=== PATIENT | female | born 1995 | race Caucasian/White ===

== ENCOUNTER 2019-03-30 17:45 | Emergency (ER) | payer MEDICAID | END 2019-03-30 19:18 | disposition left against medical advice (07) | LOC: JP.ED 17:45 | DX: Z53.21 Procedure and treatment not carried out due to patient leaving prior to being seen by health care provider (principal) ==

== ENCOUNTER 2019-03-30 20:49 | Emergency (ER) | payer MEDICAID ==
[2019-03-30 21:43] VITALS: BP 121/84; PULSE 87
[2019-03-30] MEDS ORDERED: Diphtheria,Pertussis(Acell),Tetanus Vaccine 0.5 ML SDV IM ONE (21:48)
--- NOTE | 2019-03-30 21:54 | EDM.PDOC ---
ED HPI GENERAL MEDICAL PROBLEM - General Chief Complaint: Skin Complaint Stated Complaint: STEPPED ON GLORIA NAIL RT FOOT Time Seen by Provider: 03/30/19 21:35 Source of Information: Reports: Patient, Old Records History Limitations: Reports: No Limitations - History of Present Illness INITIAL COMMENTS - FREE TEXT/NARRATIVE: 23 yo female presents with a hx of stepping on a gloria nail 2 d ago. Has some pain with putting pressure on this area. Also notes some R jaw pain. Does grind her teeth when she sleeps. No fever. No redness of injured foot area. Last tetanus was 10 yrs ago. Onset: Sudden Onset Date: 03/28/19 Duration: Day(s): (2), Improving Location: Reports: Lower Extremity, Left Quality: Reports: Dull Severity: Mild Improves with: Reports: Rest Worsens with: Reports: Movement (weight bearing) Context: Reports: Trauma Associated Symptoms: Reports: Other (R jaw pain) - Related Data Allergies Allergy/AdvReac Type Severity Reaction Status Date / Time No Known Allergies Allergy Verified 07/02/15 09:25 Home Meds: Home Meds NK [No Known Home Meds] 07/02/15 [History] ED ROS GENERAL - Review of Systems Review Of Systems: See Below Constitutional: Reports: No Symptoms HEENT: Reports: Other (mild R jaw pain.) Respiratory: Reports: No Symptoms Cardiovascular: Reports: No Symptoms GI/Abdominal: Reports: No Symptoms : Reports: No Symptoms Musculoskeletal: Reports: No Symptoms Skin: Reports: Wound (2 punctures of L forefoot) Neurological: Reports: No Symptoms ED EXAM, SKIN/RASH Exam: See Below Exam Limited By: No Limitations General Appearance: Alert, WD/WN, No Apparent Distress Eye Exam: Bilateral Eye: Normal Inspection Ears: Normal External Exam, Hearing Grossly Normal Nose: Normal Inspection, No Blood Throat/Mouth: Normal Inspection, Normal Lips, Normal Voice, No Airway Compromise Head: Atraumatic, Normocephalic Neck: Normal Inspection Extremities: Normal Inspection Neurological: Alert, Oriented, CN II-XII Intact, Normal Cognition, No Motor/ Sensory Deficits Skin: Wound/Incision (2 puncture wounds L forefoot. ) Location, Skin: Lower Extremity, Left Characteristics: Other (pinpoint). No: Erythematous Associated features: Tenderness (minimal). No: Warmth, Lymphangitis Course - Vital Signs Last Recorded V/S: Last Vital Signs Temp 35.8 C 03/30/19 21:42 Pulse 87 03/30/19 21:42 Resp 16 03/30/19 21:42 BP 121/84 03/30/19 21:42 Pulse Ox 98 03/30/19 21:42 - Orders/Labs/Meds Orders: Active Orders 24 hr Category Date Time Status Vaccines to be Administered [RC] PER UNIT ROUTINE Care 03/30/19 21:48 Ordered Diphth,Pertuss(Acell),Tet Vac [Adacel] Med 03/30/19 21:48 Once 0.5 ml IM .ONCE ONE Medication Orders Diphtheria/Tetanus/Acell Pertussis (Adacel) 0.5 ml IM .ONCE ONE Stop: 03/30/19 21:49 Meds: Medications Generic Name Dose Route Start Last Admin Trade Name Freq PRN Reason Stop Dose Admin Diphtheria/Tetanus/Acell Pertussis 0.5 ml 03/30/19 21:48 Adacel IM 03/30/19 21:49 .ONCE ONE Departure - Departure Time of Disposition: 22:00 Disposition: Home, Self-Care 01 Condition: Good Clinical Impression: TMJ (temporomandibular joint syndrome) Puncture wound of foot Qualifiers: Encounter type: initial encounter Laterality: left Qualified Code(s): S91.332A - Puncture wound without foreign body, left foot, initial encounter - Discharge Information *PRESCRIPTION DRUG MONITORING PROGRAM REVIEWED*: No *COPY OF PRESCRIPTION DRUG MONITORING REPORT IN PATIENT BRYANT: No Instructions: Puncture Wound, [id number], Temporomandibular Joint Syndrome Referrals: Farzad Elizondo Sr, MD [Primary Care Provider] - Forms: ED Department Discharge Additional Instructions: Ibuprofen 400 mg every hrs with foot. Soft diet. No gum chewing. Avoid opening your mouth wide. Limit talking if possible. F/U with you dentist if this persists. Heel walking until your foot pain is mostly gone. Recheck for signs of infection. - My Orders Last 24 Hours: My Active Orders 03/30/19 21:48 Vaccines to be Administered [RC] PER UNIT ROUTINE Diphth,Pertuss(Acell),Tet Vac [Adacel] 0.5 ml IM .ONCE ONE - Assessment/Plan Last 24 Hours: My Active Orders 03/30/19 21:48 Vaccines to be Administered [RC] PER UNIT ROUTINE Diphth,Pertuss(Acell),Tet Vac [Adacel] 0.5 ml IM .ONCE ONE
== END 2019-03-30 22:34 | disposition home or self-care (01) ==
LOC: JP.ED 20:49
DX: S91.332A Puncture wound without foreign body, left foot, initial encounter (principal); M26.601 Right temporomandibular joint disorder, unspecified; Z23 Encounter for immunization; W45.0XXA Nail entering through skin, initial encounter
CPT/HCPCS: 90471; 90715; 99282

== ENCOUNTER 2019-09-03 20:31 | Emergency (ER) | payer MEDICAID ==
[2019-09-03 20:52] VITALS: BP 128/83; PULSE 105
[2019-09-03] MEDS ORDERED: hydrOXYzine HCL 100 MG/2 ML SDV IM ONE (20:59)
--- NOTE | 2019-09-03 21:04 | EDM.PDOC ---
ED HPI GENERAL MEDICAL PROBLEM - General Chief Complaint: Skin Complaint Stated Complaint: RASH Time Seen by Provider: 09/03/19 20:50 Source of Information: Reports: Patient, Old Records, RN History Limitations: Reports: No Limitations - History of Present Illness INITIAL COMMENTS - FREE TEXT/NARRATIVE: 23 yo female has a pruritic rash that has been getting worse over the past few days. No self tx. No problem with swallowing or breathing. Was recently placed on Latuda. Rash is primarily in the pelvis and groin areas. 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: Reports: Other (see below) (none) - Related Data Allergies Allergy/AdvReac Type Severity Reaction Status Date / Time No Known Allergies Allergy Verified 09/03/19 20:44 Home Meds: Home Meds Naproxen 250 mg PO BEDTIME 03/30/19 [History] cloNIDine HCl [Clonidine HCl ER] 0.1 mg PO BEDTIME 03/30/19 [History] traZODone 50 mg PO BEDTIME 03/30/19 [History] Lurasidone [Latuda] 09/03/19 [History] Past Medical History - Past Health History Medical/Surgical History: Denies Medical/Surgical History Immunologic History: Reports: Other (See Below) Other Immunologic History: MRSA left face Social & Family History - Tobacco Use Smoking Status *Q: Current Every Day Smoker Years of Tobacco use: 3 Packs/Tins Daily: 0.5 - Caffeine Use Caffeine Use: Reports: Coffee, Soda ED ROS GENERAL - Review of Systems Review Of Systems: See Below Constitutional: Reports: No Symptoms HEENT: Reports: No Symptoms Respiratory: Reports: No Symptoms Cardiovascular: Reports: No Symptoms GI/Abdominal: Reports: No Symptoms Skin: Reports: Pruritis, Rash, Erythema, Urticaria. Denies: Cyanosis, Diaphoresis Neurological: Reports: No Symptoms ED EXAM, SKIN/RASH Exam: See Below Exam Limited By: No Limitations General Appearance: Alert, WD/WN, No Apparent Distress Eye Exam: Bilateral Eye: Normal Inspection Ears: Normal External Exam, Normal Canal, Hearing Grossly Normal, Normal TMs Nose: Normal Inspection, No Blood Throat/Mouth: Normal Inspection, Normal Lips, Normal Oropharynx, Normal Voice, No Airway Compromise Head: Atraumatic, Normocephalic Neck: Normal Inspection Respiratory/Chest: No Respiratory Distress, Lungs Clear, Normal Breath Sounds, No Accessory Muscle Use Cardiovascular: Regular Rate, Rhythm, No Edema Extremities: Normal Inspection Neurological: Alert, Oriented, CN II-XII Intact, Normal Cognition, No Motor/ Sensory Deficits Psychiatric: Normal Mood, Flat Affect Skin: Warm, Dry, Intact, Rash (diffuse, not on face or neck) Location, Skin: Abdomen, Back, Pelvis, Upper Extremity, Right, Upper Extremity, Left, Lower Extremity, Right, Lower Extremity, Left, Generalized (not face, neck , hands), Groin (under her pants front and back. ) Characteristics: Urticarial Associated features: No: Warmth, Tenderness Course - Vital Signs Last Recorded V/S: Last Vital Signs Temp 35.9 C 09/03/19 20:49 Pulse 105 H 09/03/19 20:49 Resp 16 09/03/19 20:49 BP 128/83 09/03/19 20:49 Pulse Ox 98 09/03/19 20:49 - Orders/Labs/Meds Meds: Medications Discontinued Medications Generic Name Dose Route Start Last Admin Trade Name Freq PRN Reason Stop Dose Admin Hydroxyzine HCl 75 mg 09/03/19 20:59 09/03/19 21:11 Vistaril IM 09/03/19 21:00 75 mg ONETIME ONE Administration Departure - Departure Time of Disposition: 21:50 Disposition: Home, Self-Care 01 Condition: Fair Clinical Impression: Pruritic erythematous rash - Discharge Information *PRESCRIPTION DRUG MONITORING PROGRAM REVIEWED*: No *COPY OF PRESCRIPTION DRUG MONITORING REPORT IN PATIENT BRYANT: No Instructions: Rash, [id number] Referrals: Farzad Elizondo Sr, MD [Primary Care Provider] - Forms: ED Department Discharge Additional Instructions: Take diphenhydramine 50 mg every 4-6 hrs starting after 1 am as needed for rash/ itching. Take prednisone as directed. All clothing should be washed and dried with detergents and fabric softeners without dyes or perfumes. Recheck with your doctor in the [facility]. Return as needed. Sepsis Event Note - Evaluation Sepsis Screening Result: No Definite Risk - Focused Exam Vital Signs: Vital Signs Temp Pulse Resp BP Pulse Ox 09/03/19 20:49 35.9 C 105 H 16 128/83 98 09/03/19 20:42 35.9 C 105 H 16 128/83 98 Date Exam was Performed: 09/03/19 Time Exam was Performed: 21:47
== END 2019-09-03 21:57 | disposition home or self-care (01) ==
LOC: JP.ED 20:31
DX: L29.9 Pruritus, unspecified (principal); F17.210 Nicotine dependence, cigarettes, uncomplicated; Z79.899 Other long term (current) drug therapy
CPT/HCPCS: 96372; 99282; J3410

== ENCOUNTER 2020-07-17 16:04 | Emergency (ER) | payer OTHER, MEDICAID ==
[2020-07-17 16:36] VITALS: BP 150/95; PULSE 64
[2020-07-17] MEDS ORDERED: cefTRIAXone 500 MG Vial IM ONE (19:32)
[2020-07-17] MEDS ORDERED: Azithromycin 250 MG Tab PO ONE (19:32)
[2020-07-17] MEDS ORDERED: Ibuprofen 600 MG Tab PO ONE (19:34)
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
== END 2020-07-17 20:48 | disposition home or self-care (01) ==
LOC: JP.ED 16:04
DX: T74.21XA Adult sexual abuse, confirmed, initial encounter (principal); F41.9 Anxiety disorder, unspecified; F31.9 Bipolar disorder, unspecified; F17.210 Nicotine dependence, cigarettes, uncomplicated; Z88.8 Allergy status to other drugs, medicaments and biological substances; Z79.899 Other long term (current) drug therapy
CPT/HCPCS: 96372; 99284; A9270; J0696; J2001

== ENCOUNTER 2024-03-20 18:08 | Emergency (ER) | payer MEDICAID ==
[2024-03-20 18:20] VITALS: BP 127/79; PULSE 77
[2024-03-20] MEDS: Bupivacaine 0.25% 10 ML SDV INJECT ONE (19:48)
[2024-03-20] MEDS: Acetaminophen 500 MG Tab PO ONE (19:48)
== END 2024-03-20 19:47 | disposition home or self-care (01) ==
LOC: JP.ED 18:08
DX: K02.9 Dental caries, unspecified (principal); Z88.8 Allergy status to other drugs, medicaments and biological substances; Z79.899 Other long term (current) drug therapy
CPT/HCPCS: 64400; 99282; A9270; J3490